=== PATIENT | female | born 1995 | race Caucasian/White ===

== ENCOUNTER 2020-01-16 10:05 | Outpatient (CLI) | payer MEDICAID, SELFPAY ==
[2020-01-16] VITALS (25 sets, daily range): BP systolic 0–112; BP diastolic 0–80; PULSE 48–95; RESP 17; TEMP 36.8; O2SAT 80–99; BMI 21.9
[2020-01-16 11:23] LABS: Bilirubin Urine Neg (NEGATIVE); Blood Urine Neg (Negative); Glucose Urine UA Norm (Normal); Ketones Urine Negative (Negative); Leukocyte Esterase Urine Negative (Negative); Nitrate Urine Negative (Negative); Protein Urine Neg (Negative); Specific Gravity, Urine 1.015 (1.005-1.030); Urine Appearance Clear (CLEAR); Urine Color Yellow (Yellow); Urobilinogen Urine 4 mg/dL (Negative); pH Urine 7 (5-7)
[2020-01-16 11:25] LABS: Bacteria Urine TRACE; Mucus Urine TRACE; RBC Urine 0-4 /hpf (0-2); WBC Urine 0-4 /hpf (0-5)
[2020-01-16 11:26] LABS: Add Urine Culture? No; Amorphous Sediment Urine 1+
--- NOTE | 2020-01-16 11:43 | US_ITS ---
WS: [id number] ULTRASOUND OB LIMITED TECHNIQUE: Limited ultrasound examination of the fetus. CLINICAL INFORMATION: cervical length COMPARISON: November 23, 2019 FINDINGS: Cervix measures 4.1 cm Single interuterine gestation. presentation is breech Placental location is posterior fundal. Placenta grade: 1 heart rate 126 BPM. EGA by ultrasound: 27 weeks 5 days 2. Estimated gestational age: 27 weeks 5 days 3. Breech presentation. Placenta is posterior fundal 4. Cervix measures 4.1 cm US/US OB limited [id number] IMPRESSION: 1. Single live intrauterine .
[2020-01-16] MEDS: terbutaline 1 mg/mL INJ 0.25 MG SUBCUT (11:53)
== END 2020-01-16 13:30 | disposition home or self-care (01) ==
LOC: OPOB 10:10 → OBGYN 13:25
PROVIDERS: Family Provider Family Medicine; PCP Family Medicine; Visit Provider Family Medicine
DX: O26.899 Other specified pregnancy related conditions, unspecified trimester (principal); Z3A.00 Weeks of gestation of pregnancy not specified; R10.9 Unspecified abdominal pain
CPT/HCPCS: 59025; 76815; 81001; 96372; 99211; J3105

== ENCOUNTER 2020-02-01 14:01 | Outpatient (CLI) | payer MEDICAID, SELFPAY ==
[2020-02-01 15:43] VITALS: BP 103/65; PULSE 88; RESP 18; TEMP 37.1; O2SAT 97
[2020-02-01 16:39] VITALS: BP 103/65; PULSE 88; RESP 18; TEMP 37.1
== END 2020-02-01 14:02 | disposition home or self-care (01) ==
LOC: GILAB 14:04
PROVIDERS: PCP Family Medicine; Visit Provider Family Medicine
DX: Z34.80 Encounter for supervision of other normal pregnancy, unspecified trimester (principal); Z31.82 Encounter for Rh incompatibility status; Z67.91 Unspecified blood type, Rh negative; Z3A.00 Weeks of gestation of pregnancy not specified
CPT/HCPCS: 36415; 86850; 86900; 90384; 96372

== ENCOUNTER 2020-04-02 06:59 | Inpatient (IN) | payer MEDICAID, SELFPAY ==
[2020-04-02] VITALS (58 sets, daily range): BP systolic 0–145; BP diastolic 0–97; PULSE 56–87; RESP 16–18; TEMP 36.4–37.1; O2SAT 96–99; BMI 24.0
[2020-04-02] MEDS: lactated ringers 1,000 ML 999 ML IV ×2 (07:28→08:30)
[2020-04-02 07:47] LABS: Basophils % 0.3 %; Eosinophils # 0.1 10^3/uL (0.0-0.8); Eosinophils % 0.5 %; Hematocrit 31.9 % (37.0-47.0); Hemoglobin 9.8 g/dL (11.5-15.3); Lymphocytes # 2.1 10^3/uL (0.8-4.8); Lymphocytes % 22.1 %; Mean Corpuscular HGB Conc 30.7 g/dL (30.0-36.0); Mean Corpuscular Hemoglobin 26.7 pg (28.0-34.0); Mean Corpuscular Volume 86.9 fL (81-99); Mean Platelet Volume 10.9 fL (7.4-10.4); Monocytes # 0.5 10^3/uL (0.2-0.9); Monocytes % 5.2 %; Neutrophils # 6.86 10^3/uL (1.8-7.7); Neutrophils % 71.5 %; Nucleated Red Blood Cells % 0 %; Platelet Count 188 10^3/cmm (130-400); Red Blood Count 3.67 10^6/uL (4.1-5.3); Red Cell Distribution Width 12.3 % (12.1-15.1); White Blood Count 9.6 10^3/uL (4.0-10.0)
--- NOTE | 2020-04-02 08:39 | ANES.PREANE2 ---
Pre-Anesthetic Assessment Pre-Anesthetic Assessment: Height/Weight: Height 1.75 m Weight 73.936 kg Temp Pulse BP Pulse Ox 98.0 F 63 118/66 98 04/02/20 06:58 04/02/20 08:37 04/02/20 08:37 04/02/20 08:26 Preop Diagnosis: IUP Proposed Procedure: epidural Familial anesthetic complications: None Was Beta Bassem taken within 24 hours: N/A Social: Social History: No alcohol and No tobacco Exam: Pre-Anes Outpt Exam: alert, oriented x 3, clear to auscultation bilaterally and regular rate & rhythm Airway: Cervical ROM: WNL MP: 3 Dentition: Full Anesthetic Plan: ASA status: 2 Anesthesia: Regional (specify below) Risk of > 500 ml blood loss (7ml/kg in children): Yes, adequate IV access and fluids planned Meds/Allergies Current Medications: Current Medications Generic Name Dose Route Start Last Admin Trade Name Freq PRN Reason Stop Dose Admin Ropivacaine 200 mg in 100 mls @ 13 mls/hr 04/02/20 07:30 04/02/20 08:30 Naropin Premix EPIDURAL 13 mls/hr .[id number] LUCITA Administration PFSH Anesthesia PFSH: Family History (Updated 07/12/19 @ 12:32 by CARLOS Bush) Father Cancer BONE CANCER,LYMPHOMA Social History (Updated 07/12/19 @ 12:33 by CARLOS Bush) Smoking and tobacco status: current every day smoker Alcohol intake: current Adopted: No Caregiver/support person: No Lives independently: No Household members: spouse Marital status: Current occupational status: employed Female Reproductive History: : 2 Data Anesthesia CBC & Chem 7: 04/02/20 06:30 Other Labs: Laboratory Results - last 48 hr 04/02/20 06:30 WBC 9.6 RBC 3.67 L Hgb 9.8 L Hct 31.9 L MCV 86.9 MCH 26.7 L MCHC 30.7 RDW 12.3 Plt Count 188 MPV 10.9 H Neut % (Auto) 71.5 Lymph % (Auto) 22.1 Bill[place] % (Auto) 5.2 Eos % (Auto) 0.5 Baso % (Auto) 0.3 Neut # (Auto) 6.86 Lymph # (Auto) 2.1 Billings # (Auto) 0.5 Eos # (Auto) 0.1 Baso # (Auto) 0.0 Nucleated RBC % (auto) 0 Nucleated RBCs # 0.0 Cardiac Studies: No Data to Display
--- NOTE | 2020-04-02 08:40 | ANES.PROC ---
Anesthesia Procedures Procedure/Date: 04/02/20 Epidural: Time Out Performed: Yes Consents Signed: Procedure Consent and NPO Consent Consent: requested by attending/covering physician, from patient, from other, risks and benefits reviewed and patient agrees to proceed Lumbar Level: L3-L4 Epidural procedure: sterile prep of area, 1% lidocaine to numb the area, 18 g needle, negative for paresthesia passed, neg for paresthesia, test dose given (5 ml (divided dose of 3 ml + 2 ml)), 1.5% xylocaine 1:200k epi, 0.2% Ropivacaine bolus ml (5 cc), placed PCEA, no systemic response, sterile dressing applied, L.U.D. no apparent complications and 0.2% Ropiavacaine @ mls/hr (13) Additional Comments: MANFRED at 4.5 cm, threaded to 10 cm, improved pain of contractions from 10/10 to 5/10
--- NOTE | 2020-04-02 12:22 | PC.NURSE ---
Patient sat in to throne position at 1156. Patient called publicity writer in to room shortly after and is noted to have her eyes closed. Patient states I don't feel well, I'm going to pass out patient is very diaphoretic and BP obtained, see OBIX vitals. Bolus of LR initiated and patient laid back. Patient then begins to vomit. Patient states she is feeling better shortly after and states that happens to her at home sometimes when she stands up to quickly.
--- NOTE | 2020-04-02 12:58 | PM.DELIVERY ---
Delivery Note: Date of delivery: April 02, 2020 Pre-Delivery Course: The patient had routine care at [facility]. There were no complications during the . Mother was blood type A- antibody negative, she received RhoGam at 28 weeks gestation. She was GBS negative. COVID pending. Delivery: This is a 24-year-old at 38 weeks 5 days gestation who presented to labor and delivery in active labor. She received an epidural for pain management and had artificial rupture of membranes with clear fluid approximately 1 hour prior to delivery. She had a normal spontaneous vaginal delivery of a viable female infant weight 3300 g, 7 pounds 4 ounces, Apgars 8 and 9. The infant was delivered over an intact perineum with bulb suction of the mouth and nares after delivery. The infant was then placed on the mother's chest and the cord was clamped and cut. The placenta was delivered grossly intact and normal to inspection. There was a first-degree perineal laceration that was sutured using 3-0 chromic. Mother and were doing well after delivery. Estimated blood loss 125 mL A&P Assessment and plan (1) (normal spontaneous vaginal delivery): Routine care Status: Acute Coding Level of Care Code Acute Assurance Services Manager Health Care for Chg Fwd Diagnoses (normal spontaneous vaginal delivery) O80
[2020-04-02] MEDS: benzocaine-menthol 78 gm Canister 1 SPRAY TOPICAL (15:35)
[2020-04-02] MEDS: docusate sodium 100 mg Capsule PO (18:52)
[2020-04-03 00:22] LABS: Hematocrit 28.4 % (37.0-47.0); Hemoglobin 8.7 g/dL (11.5-15.3); Mean Corpuscular HGB Conc 30.6 g/dL (30.0-36.0); Mean Corpuscular Hemoglobin 26.7 pg (28.0-34.0); Mean Corpuscular Volume 87.1 fL (81-99); Platelet Count 175 10^3/cmm (130-400); Red Blood Count 3.26 10^6/uL (4.1-5.3); Red Cell Distribution Width 12.2 % (12.1-15.1); White Blood Count 10.8 10^3/uL (4.0-10.0)
[2020-04-03 03:02] VITALS: BP 115/75; PULSE 61; RESP 14; TEMP 36.8; O2SAT 97
[2020-04-03 06:20] VITALS: BP 101/61; PULSE 68; RESP 13; TEMP 36.8; O2SAT 97
[2020-04-03] MEDS: prenatal vitamin Capsule 1 CAP PO (09:21)
[2020-04-03] MEDS: docusate sodium 100 mg Capsule PO (09:22)
[2020-04-03 10:11] VITALS: BP 114/75; PULSE 68; RESP 18; TEMP 36.8
--- NOTE | 2020-04-03 11:37 | ANE.PACU2 ---
Inpatient post-anesthesia follow up: Airway intact: Yes Vital signs: Temperature 98.3 F Pulse Rate 68 Respiratory Rate 18 Blood Pressure 114/75 Pulse Oximetry 97 Oxygen Delivery Me thod Room Air Oxygen Flow Rate Fraction of Inspir ed Oxygen Hydration adequate: Yes Nausea and vomiting: No Pain level: 1 Mental status: Baseline Additional Comments: no signs of infection at epidural site, no numbness/weakness of lower extremities, up and walking, no headaches, urinating ok without carranza
--- NOTE | 2020-04-03 12:09 | PC.RESP ---
SMOKING CESSATION INFORMATION SENT TO PATIENT.
--- NOTE | 2020-04-03 12:26 | PM.OBGYDC ---
Discharge Providers ELECTRICAL TESTER Date of Admission: 04/02/20 06:59 Date of Discharge: 04/03/20 Attending Provider at Admission: Christina Lee MD Attending Provider at Discharge: Christina Lee MD Primary Care Provider: Antonio Nixon MD Diagnoses at Discharge Discharge Diagnosis (1) (normal spontaneous vaginal delivery): Status: Acute Reason for Visit Reason for Visit: Abdominal pain Hospital Course Hospital Course: This is a 24-year-old G2 now P2 who was admitted in active labor. She had a normal spontaneous vaginal delivery of a viable female . Mother did well after delivery. On day #1 she was ambulating, tolerating a regular diet, had minimal vaginal bleeding and was comfortable with discharge home. Information Peripartum Data: Infant Delivery Method: Vaginal Physical Exam Const: COMMON NORMALS: no acute distress Chest: COMMONS NORMALS: normal inspection of the chest Resp: COMMON NORMALS: normal respiratory effort and clear to auscultation bilaterally AUSCULTATION: clear to auscultation bilaterally Cardio: COMMON NORMALS: regular rate and regular rhythm RATE: regular rate RHYTHM: regular rhythm GI: COMMON NORMALS: non-tender (Fundus firm U- 3), No hepatosplenomegaly present and no masses PALPATION: Yes No hepatosplenomegaly present Extremity: GENERAL: No calf tenderness and No edema Psych: COMMON NORMALS: mental status grossly normal Urinary Catheter Management^: Celaya: Cath Placed During This Visit: yes Urinary Catheter Date of Insertion: 04/02/20 Urinary Catheter Time of Insertion: 08:55 Discharge Data Data Completed and Pending: Labs from last 24 hours 04/02/20 04/02/20 04/02/20 23:55 23:55 06:30 WBC 10.8 H RBC 3.26 L Hgb 8.7 L Hct 28.4 L MCV 87.1 MCH 26.7 L MCHC 30.6 RDW 12.2 Plt Count 175 MPV 11.0 H Blood Type A Negative Rho(D) Type Negative Antibody Screen Positive Antibody Identific ation Anti-D Screen Negative Vitals: Last Vital Signs Temp 98.3 F 04/03/20 10:11 Pulse 68 04/03/20 10:11 Resp 18 04/03/20 10:11 BP 114/75 04/03/20 10:11 Pulse Ox 97 04/03/20 06:20 Discharge Plan Discharge Patient Disposition: Home Condition: Stable Prescriptions: Continued mirtazapine 15 mg tablet 15 mg PO DAILY RF: 0 nitrofurantoin monohyd/m-cryst [Macrobid] 100 mg capsule 100 mg PO BID RF: 0 Flintstones Gummies RF: 0 Discharge Orders: Discharge Order (Routine); Ordered 04/03/20 Ordered By: Christina Lee Referrals: Christina Lee MD [Physician] - 1 month Discharge Diet: Usual diet Discharge Activity: Limit activity as instructed Discharge Attestations ELECTRICAL TESTER Time Spent in Discharge Care*: less than 30 min Coding Level of Care Code Acute Artist'S Manager for Chg Fwd Diagnoses (normal spontaneous vaginal delivery) O80
[2020-04-03 14:25] VITALS: BP 117/76; PULSE 74; RESP 18; TEMP 36.9
== END 2020-04-03 14:00 | disposition home or self-care (01) | DRG 807 ==
LOC: OBGYN 07:52 → OPOB 04-03 08:21
PROVIDERS: Admitting Provider Family Medicine; PCP Family Medicine; Visit Provider Family Medicine
DX: O70.0 First degree perineal laceration during delivery (principal); Z37.0 Single live birth; Z3A.38 38 weeks gestation of pregnancy
CPT/HCPCS: 12345; 36415; 51702; 59025; 59409; 80500; 85025; 85027; 85460; 86850; 86870; 86900; 90384; 99211; J2795

== ENCOUNTER → 2020-12-16 10:34 | Outpatient (BNVA) | payer BC, MEDICAID, SELFPAY | PROVIDERS: PCP Family Medicine; Visit Provider Obstetrics & Gynecology | DX: R87.619 Unspecified abnormal cytological findings in specimens from cervix uteri (principal); N89.8 Other specified noninflammatory disorders of vagina | CPT/HCPCS: 81025; 88175; 88305 ==

== ENCOUNTER → 2021-07-03 15:05 | Outpatient (BNVA) | payer OTHER, BC, SELFPAY | PROVIDERS: PCP Family Medicine; Visit Provider Obstetrics & Gynecology | DX: R87.619 Unspecified abnormal cytological findings in specimens from cervix uteri (principal); Z12.4 Encounter for screening for malignant neoplasm of cervix | CPT/HCPCS: 88175 ==

== ENCOUNTER → 2021-10-21 09:01 | Outpatient (BNVA) | payer BC, MEDICAID, SELFPAY | PROVIDERS: PCP Family Medicine; Referring Provider Nurse Practitioner Family; Visit Provider Orthopaedic Surgery | DX: S62.607A Fracture of unspecified phalanx of left little finger, initial encounter for closed fracture (principal); Y93.67 Activity, basketball | CPT/HCPCS: 26720 ==

== ENCOUNTER → 2022-01-12 15:46 | Outpatient (BNVA) | payer BC, MEDICAID, SELFPAY | PROVIDERS: PCP Family Medicine; Visit Provider Obstetrics & Gynecology | DX: R30.0 Dysuria (principal); R87.619 Unspecified abnormal cytological findings in specimens from cervix uteri | CPT/HCPCS: 81000; 88175 ==

== ENCOUNTER → 2023-02-08 14:40 | Outpatient (BNVA) | payer BC, MEDICAID, SELFPAY | PROVIDERS: PCP Family Medicine; Visit Provider Obstetrics & Gynecology | DX: Z12.4 Encounter for screening for malignant neoplasm of cervix (principal) | CPT/HCPCS: 88175 ==

== ENCOUNTER → 2024-02-25 14:32 | Outpatient (BNVA) | payer OTHER, SELFPAY | PROVIDERS: PCP Family Medicine; Visit Provider Family Medicine | DX: R87.619 Unspecified abnormal cytological findings in specimens from cervix uteri (principal); N39.0 Urinary tract infection, site not specified; R39.9 Unspecified symptoms and signs involving the genitourinary system | CPT/HCPCS: 81000; 82962 ==

== ENCOUNTER 2024-04-14 13:28 | Outpatient (CLI) | payer OTHER, SELFPAY ==
--- NOTE | 2024-04-14 13:35 | CTR_ITS ---
PROCEDURE INFORMATION: Exam: CT Abdomen And Pelvis Without Contrast Exam date and time: 04/14/2024 1:45 PM Age: 28 years old Clinical indication: Condition or disease; Kidney or ureter condition; Calculus (stone) in kidney; Additional info: Calculus of kidney TECHNIQUE: Imaging protocol: Computed tomography of the abdomen and pelvis without contrast. Radiation optimization: All CT scans at this facility use at least one of these dose optimization techniques: automated exposure control; mA and/or kV adjustment per patient size (includes targeted exams where dose is matched to clinical indication); or iterative reconstruction. COMPARISON: US renal BI* [id number] 03/15/2024 2:05 PM RADIATION DOSE METRICS: Total DLP (mGy-cm): 270.43 FINDINGS: Liver: Normal. No mass. Gallbladder and biliary ducts: Normal. No calcified stones. No ductal dilation. Pancreas: Normal. No ductal dilation. Spleen: Normal. No splenomegaly. Adrenal glands: Normal. No mass. Kidneys and ureters: Normal. No hydronephrosis. No renal stones. Stomach and bowel: Unremarkable. No obstruction. No mucosal thickening. Appendix: Appendicoliths noted within the appendix which is not inflamed. Intraperitoneal space: Unremarkable. No free air. No significant fluid collection. Vasculature: Unremarkable. No abdominal aortic aneurysm. Lymph nodes: Unremarkable. No enlarged lymph nodes. Urinary bladder: Unremarkable as visualized. Reproductive: Unremarkable as visualized. Bones/joints: No acute fracture. Soft tissues: Unremarkable. CT/CT abdomen pelvis wo con [id number] IMPRESSION: No acute findings. No renal stones.
== END 2024-04-14 13:29 | disposition home or self-care (01) ==
LOC: RAD 13:29
PROVIDERS: PCP Electrodiagnostic Medicine; Visit Provider Student in an Organized Health Care Education/Training Program
DX: N20.0 Calculus of kidney (principal); K38.1 Appendicular concretions
CPT/HCPCS: 74176

== ENCOUNTER → 2024-12-07 15:48 | Outpatient (BNVA) | payer OTHER, SELFPAY | PROVIDERS: PCP Electrodiagnostic Medicine; Visit Provider Nurse Practitioner Women's Health | DX: Z01.419 Encounter for gynecological examination (general) (routine) without abnormal findings (principal) | CPT/HCPCS: 87624 ==

== ENCOUNTER → 2025-03-16 14:38 | Outpatient (BNVA) | payer SELFPAY | PROVIDERS: Visit Provider Registered Nurse Neonatal Intensive Care | DX: J02.9 Acute pharyngitis, unspecified (principal) | CPT/HCPCS: 87071; 87880 ==

== ENCOUNTER 2025-06-04 12:16 | Emergency (ER) | payer OTHER, SELFPAY ==
[2025-06-04 12:19] VITALS: BP 131/81; PULSE 79; TEMP 36.7; O2SAT 98; BMI 23.6
--- NOTE | 2025-06-04 12:23 | ECG_ITS ---
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 [email or web address]
--- NOTE | 2025-06-04 12:40 | XR_ITS ---
WS: [id number] Exam: XR chest 1V portable [id number] Date/Time of Exam: 06/04/2025 12:40 PM Reason For Exam: cp/sob No priors. Lungs are clear and fully inflated. Normal cardiomediastinal silhouette and regional bony structures. Mild dextroscoliosis of the T-spine. XR/XR chest 1V portable [id number] IMPRESSION: 1. Negative chest.
[2025-06-04 12:43] VITALS: BP 126/83; PULSE 78; RESP 17; O2SAT 98
--- NOTE | 2025-06-04 12:45 | ED_ITS ---
HPI - Arrhythmia/Palpitations 2 General: Chief Complaint: Arrhythmia/Palpitations Stated Complaint: high HR, CP Time Seen by Provider: 06/04/25 12:30 Source: patient Mode of arrival: ambulatory Limitations: no limitations History of Present Illness: Patient is a 29-year-old female with past medical history of anxiety who presents the emergency department complaining of chest pain and shortness of breath beginning about 45 minutes ago. States that she was sitting down to eat lunch in the cafeteria, when she had the onset of central chest pain that has been constant, stating she has had this before and has actually worn a Holter monitor 5 years prior. Reviewing his Holter monitor appears that this was nondiagnostic for any concerning arrhythmias, patient states that she has dealt with them intermittently over the years but it has never persisted this long. Describes the pain as a constant sensation, cannot really describe it though it is nonradiating. Does note the accompanying shortness of breath and states that she is currently having the symptoms at this time. Notes palpitations that feel like she is having fast heart rates and that it is skipping beats, denies history of blood clots but she is on oral contraceptive. No specific alleviating or exacerbating factor to her symptoms. States that she take Xanax for her anxiety, but thinks that this is different than anxiety. No nausea vomiting, diaphoresis, weakness, dizziness, syncopal episodes, or any other symptoms noted at this time. No new medications. complaint: rapid heart beat, skipped beats and palpitations Onset (ago): minute(s) (45) Duration: constant Severity: similar to previous episodes Associated symptoms: Deny nausea or vomiting Related Data Home Medications ?Medication ?Instructions ?Recorded ?Confirmed alprazolam 0.25 mg tablet 0.25 mg PO DAILY PRN Anxiety 12/07/24 06/04/25 hydroxyzine HCl 25 mg tablet 25 mg PO BID 12/07/2407/29 venlafaxine 75 mg capsule,extended 75 mg PO DAILY 11/2606/04/25 release 24 hr (Effexor XR) Previous Rx's ?Medication ?Instructions ?Recorded norgestrel 0.3 mg-ethinyl 1 tab PO DAILY #4 packets estradiol 30 mcg tablet (Elinest) Allergies Allergy/AdvReac Type Severity Reaction Status Date / Time Sulfa (Sulfonamide Allergy HIVES, Verified 06/04/25 12:27 Antibiotics) FEVER Review of Systems 2 General: Reports: 10 or more systems reviewed and unremarkable except in HPI and below Const: Denies: fever(s), chills or fatigue Eyes: Denies: change in vision ENMT: Denies: throat pain, ear or mastoid pain or nasal discharge Card: Reports: chest pain and palpitations; Denies: swelling of feet/ankles or lightheadedness Resp: Reports: dyspnea; Denies: productive cough or wheezing GI: Denies: abdominal pain, nausea, vomiting, diarrhea or constipation : Denies: flank pain, difficulty voiding, dysuria or urinary frequency Musc: Denies: neck pain, back pain or joint pain Skin/Breast: Denies: rash Neuro: Denies: headache(s), numbness in extremities or weakness in extremities PFSH ED 2 PFSH: Medical History No pertinent past medical history neghx: htn, dm, thyroid, dvt/pe PCP: [facility] Interstitial cystitis (~08/2024) surgery planned for 12/27/2024 Urology at [facility] Recurrent UTI Surgical History No pertinent past surgical history Family History Father Cancer BONE CANCER,LYMPHOMA Grandfather Diabetes paternal Heart attack maternal Stroke Maternal Family/Other Breast cancer Maternal Aunt-- dx age 40's Mother No problems noted. Sister Thyroid disease Denies family history of Ovarian cancer Hyperlipidemia Hypertension Uterine cancer Social History Smoking and tobacco/nicotine status: current every day tobacco/nicotine user Substance/Drug Use: never Physical Exam 2 Const: COMMON NORMALS: no acute distress, patient oriented x3 and no limitations GENERAL APPEARANCE: cooperative, comfortable and well developed ORIENTATION/CONSCIOUSNESS: Yes awake, Yes oriented to person, Yes oriented to place and Yes oriented to time HENMT: COMMON NORMALS: normocephalic, atraumatic and hearing grossly normal bilaterally HEAD & SCALP: normocephalic and atraumatic Eye: COMMON NORMALS: Equal, round and reactive pupils present, EOMs intact bilaterally and conjunctivae normal CONJUNCTIVA: Yes conjunctivae normal P UPIL: Yes Equal, round and reactive pupils present Neck/C-Spine: COMMON NORMALS: full ROM, supple and no JVD Resp: COMMON NORMALS: normal respiratory effort, No retractions, No use of accessory muscles and clear to auscultation bilaterally AUSCULTATION: clear to auscultation bilaterally Cardio: COMMON NORMALS: no JVD, regular rate, regular rhythm, No clicks present (Cardio), No murmurs present (Cardio) and No rub (Cardio) RATE: r egular rate RHYTHM: regular rhythm Extremity: COMMON NORMALS: normal to inspection, full ROM and capillary refill normal Neuro: COMMON NORMALS: patient oriented x3, moves all extremities, no focal motor deficits and no sensory deficits noted SENSORIUM/ORIENTATION: Yes oriented to person, Yes oriented to place and Yes oriented to time Skin: COMMON NORMALS: no rashes or lesions noted GENERAL SKIN EXAM: no rashes or lesions noted Course 2 Vital Signs: Vital signs: Vital Signs Temperature 98.0 F 06/04/25 12:19 Pulse Rate 78 06/04/25 12:43 Respiratory Rate 17 06/04/25 12:43 Blood Pressure 126/83 06/04/25 12:43 Pulse Oximetry 98 06/04/25 12:43 Oxygen Delivery Me thod Room Air 06/04/25 12:43 MDM - Arrhythmia/Palpitations Medical Decision Making Patient presented with chest pain, palpitations, and shortness of breath of sudden onset about 45 minutes prior to arrival. History of similar she has 1 Holter monitor in the past essentially was nondiagnostic, as I reviewed the interpretation. No new recent medications. With her lab work, her troponin negative, EKG with no ST segment changes, chest x-ray normal, essentially all was unremarkable aside from her TSH being notably low indicating possible clinical picture of hyperthyroidism. States that she has had her thyroid checked in the past which has been normal at that time, with her reporting to me that she is having the palpitations, chest pain, and after further investigation tells me that essentially she has difficulty gaining weight it is very likely that she has hyperthyroidism but ultimately needs reevaluation and further testing to confirm this prior to starting treatment. Regardless there is no further workup necessary in the ED at this time, I will establish care with a primary care provider to have these tests rechecked within the next 1 to 2 weeks, and she is urged to come back if she worsens. Patient agrees with this plan at this time. Lab Data 06/04/25 12:41 06/04/25 12:41 Radiology Impressions Chest X-Ray 06/04/25 12:40 IMPRESSION: 1. Negative chest. Laboratory Results WBC 5.67 10^3/uL (3.29-11.43) 06/04/25 12:41 RBC 4.49 10^6/uL (3.85-5.65) 06/04/25 12:41 Hgb 13.50 g/dL (11.27-16.99) 06/04/25 12:41 Hct 40.2 % (36-47) 06/04/25 12:41 MCV 89.5 fl (85-98) 06/04/25 12:41 MCH 30.1 pg (27-33) 06/04/25 12:41 MCHC 33.6 g/dL (30-55) 06/04/25 12:41 RDW 11.9 % (12.1-15.1) L 06/04/25 12:41 Plt Count 254 10^3/cmm (157-399) 06/04/25 12:41 MPV 9.4 fL (7.4-10.4) 06/04/25 12:41 Neut % (Auto) 53.7 % 06/04/25 12:41 Lymph % (Auto) 37.4 % 06/04/25 12:41 Holmes % (Auto) 5.3 % 06/04/25 12:41 Eos % (Auto) 2.5 % 06/04/25 12:41 Baso % (Auto) 0.7 % 06/04/25 12:41 Neut # (Auto) 3.05 10^3/uL (1.8-7.7) 06/04/25 12:41 Lymph # (Auto) 2.1 10^3/uL (0.8-4.8) 06/04/25 12:41 Holmes # (Auto) 0.3 10^3/uL (0.2-0.9) 06/04/25 12:41 Eos # (Auto) 0.1 10^3/uL (0.0-0.8) 06/04/25 12:41 Baso # (Auto) 0.0 10^3/uL (0.0-0.1) 06/04/25 12:41 Nucleated RBC % (auto) 0 % 06/04/25 12:41 Nucleated RBCs # 0.0 /100WBC 06/04/25 12:41 Sodium 137 mmol/L (136-145) 06/04/25 12:41 Potassium 3.9 mmol/L (3.5-5.1) 06/04/25 12:41 Chloride 103 mmol/L (98-107) 06/04/25 12:41 Carbon Dioxide 25 mmol/L (22-29) 06/04/25 12:41 Anion Gap 12.9 (5-19) 06/04/25 12:41 BUN 11 mg/dL (6-20) 06/04/25 12:41 Creatinine 0.7 mg/dL (0.5-0.9) 06/04/25 12:41 GFR Calculation 97.6 mL/min (90-130) 06/04/25 12:41 Glucose 90 mg/dL (65-115) 06/04/25 12:41 Calculated Osmolality 283 mOsm/kg (285-295) L 06/04/25 12:41 Calcium 9.5 mg/dL (8.5-10.5) 06/04/25 12:41 Magnesium 2.2 mg/dL (1.7-2.3) 06/04/25 12:41 Total Bilirubin 0.3 mg/dL (0.15-1.2) 06/04/25 12:41 AST 18 U/L (0-32) 06/04/25 12:41 ALT 17 U/L (0-33) 06/04/25 12:41 Alkaline Phosphatase 44 U/L (35-105) 06/04/25 12:41 Troponin T Baseline < 6 ng/L (0-10) 06/04/25 12:41 Total Protein 7.6 g/dL (6.6-8.7) 06/04/25 12:41 Albumin 4.8 g/dL (3.5-5.2) 06/04/25 12:41 Globulin 2.8 g/dL (1.3-4.6) 06/04/25 12:41 TSH 0.13 uIU/mL (0.27-4.20) L 06/04/25 12:41 All radiology interpretation(s) finalized by discharge Discharge Plan Discharge Patient Disposition: Home Clinical Impression: Hyperthyroidism Condition: Stable Prescriptions: No Action venlafaxine [Effexor XR] 75 mg capsule,extended release 24hr 75 mg PO DAILY alprazolam 0.25 mg tablet 0.25 mg PO DAILY PRN (Reason: Anxiety) hydroxyzine HCl 25 mg tablet 25 mg PO BID Elinest 0.3-30 mg-mcg tablet 1 tab PO DAILY Qty: 4 5RF Rx Instructions: take continuous skipping placebos -- please allow for adequate refills Discharge Orders: Discharge ED (Routine); Ordered 06/04/25 Ordered By: Ishaan Mendez Patient Instructions: Patient Portal & Liza Instructions Activity Restrictions/Additional Instructions: Discharge Instructions Your Visit Today You came to the hospital with chest pain and palpitations (a feeling that your heart is racing or pounding). We performed several tests to check your heart, including blood tests, an electrocardiogram (EKG), and a chest x-ray. All of these heart tests were normal, which is good news. However, we found that your thyroid-stimulating hormone (TSH) level is low. TSH is a hormone made by your brain that controls your thyroid gland. A low TSH level may mean your thyroid gland is making too much thyroid hormone, a condition called hyperthyroidism. When your body has too much thyroid hormone, it can cause symptoms like a fast heartbeat, palpitations, anxiety, weight loss, and feeling warm or sweaty. What You Need to Do 1. See your primary care doctor within 1-2 weeks. Your doctor will need to: - Repeat your blood tests to confirm the low TSH level - Order additional thyroid tests to find out why your TSH is low - Determine if you need treatment 2. Watch for symptoms. Call your doctor if you notice: - Continued or worsening palpitations - Rapid heartbeat (feeling like your heart is racing) - Unexplained weight loss - Feeling shaky or nervous - Trouble sleeping - Feeling very warm or sweating more than usual When to Go to the Emergency Room Seek immediate medical attention if you experience: - Severe chest pain - Shortness of breath or difficulty breathing - Fainting or feeling like you might pass out - Very rapid or irregular heartbeat that doesn't go away Important Information - Your cardiac workup was normal, meaning your heart appears healthy right now - Low TSH levels need to be confirmed with repeat testing before starting treatment - If hyperthyroidism is confirmed, there are effective treatments available - Most people with hyperthyroidism feel much better once treatment begins Questions? If you have questions before your follow-up appointment, contact your primary care doctor's office. Print Language: French Coding Level of Care Code ED Candle Extrusion Machine Operator for Pepe Granados
[2025-06-04 12:52] LABS: Hematocrit 40.2 % (36-47); Hemoglobin 13.50 g/dL (11.27-16.99); Mean Corpuscular HGB Conc 33.6 g/dL (30-55); Mean Corpuscular Hemoglobin 30.1 pg (27-33); Mean Corpuscular Volume 89.5 fl (85-98); Nucleated Red Blood Cells % 0 %; Platelet Count 254 10^3/cmm (157-399); Red Blood Count 4.49 10^6/uL (3.85-5.65); White Blood Count 5.67 10^3/uL (3.29-11.43)
[2025-06-04 13:12] LABS: Troponin(5th) Baseline < 6 ng/L (0-10)
[2025-06-04 13:25] LABS: Alanine Aminotransferase 17 U/L (0-33); Albumin Level 4.8 g/dL (3.5-5.2); Alkaline Phosphatase 44 U/L (35-105); Anion Gap 12.9 (5-19); Aspartate Amino Transferase 18 U/L (0-32); Blood Urea Nitrogen 11 mg/dL (6-20); Calcium 9.5 mg/dL (8.5-10.5); Carbon Dioxide 25 mmol/L (22-29); Chloride 103 mmol/L (98-107); Globulin 2.8 g/dL (1.3-4.6); Glucose 90 mg/dL (65-115); Magnesium 2.2 mg/dL (1.7-2.3); Osmolality Calculated 283 mOsm/kg (285-295); Potassium 3.9 mmol/L (3.5-5.1); Sodium 137 mmol/L (136-145); Thyroid Stimulating Hormone 0.13 uIU/mL (0.27-4.20); Total Protein 7.6 g/dL (6.6-8.7)
[2025-06-04 13:56] VITALS: BP 104/82; PULSE 77; O2SAT 98
== END 2025-06-04 13:58 | disposition home or self-care (01) ==
PROVIDERS: Emergency Provider Physician Assistant
DX: E05.90 Thyrotoxicosis, unspecified without thyrotoxic crisis or storm (principal); Z72.0 Tobacco use
CPT/HCPCS: 71045; 80053; 83735; 84443; 84484; 85025; 93005; 99285

== ENCOUNTER → 2025-06-26 09:06 | Outpatient (BNVA) | payer OTHER, SELFPAY | PROVIDERS: PCP Family Medicine; Visit Provider Family Medicine | DX: E03.9 Hypothyroidism, unspecified (principal); R79.89 Other specified abnormal findings of blood chemistry | CPT/HCPCS: 84439; 84443; 84480 ==